=== PATIENT | female | born 1950 | race Caucasian/White ===

== ENCOUNTER 2020-11-11 09:00 | Day surgery (SDC) | payer MEDICARE ==
[2020-11-10 13:43] LABS: BASOPHILS # (AUTO) 0.1 X10'3 (0-0.2); EOSINOPHILS # (AUTO) 0.1 X10'3 (0-0.9); EOSINOPHILS % (AUTO) 1.4 % (0-6); HEMOGLOBIN 15.1 g/dl (12.0-16.0); LYMPHOCYTES # (AUTO) 1.8 X10'3 (1.1-4.8); MEAN CORPUSCULAR HEMOGLOBIN 31.8 PG (27.0-31.0); MEAN CORPUSCULAR HGB CONC 33.6 g/dL (33.0-36.5); MEAN CORPUSCULAR VOLUME 94.5 FL (78-98); MEAN PLATELET VOLUME 7.7 FL (7.4-10.4); MONOCYTES # (AUTO) 0.5 X10'3 (0-0.9); MONOCYTES % (AUTO) 8.3 % (2-12); NEUTROPHILS # (AUTO) 3.2 X10'3 (1.8-7.7); NEUTROPHILS % (AUTO) 57.3 % (42-75); PLATELET COUNT 287 X10'3 (140-440); RED BLOOD COUNT 4.76 X10'6 (4.20-5.60); RED CELL DISTRIBUTION WIDTH 12.7 % (11.5-14.5); WHITE BLOOD COUNT 5.6 X10'3 (4.5-11.0)
[2020-11-10 13:52] LABS: PARTIAL THROMBOPLASTIN TIME 25 SECONDS (22-32)
[2020-11-10 13:56] LABS: ALBUMIN 4.2 G/DL (3.4-5.0); ANION GAP 9 (8-16); BLOOD UREA NITROGEN 22 MG/DL (7-18); BUN/CREATININE RATIO 25.3 (6.6-38.0); CHLORIDE 106 MMOL/L (99-107); CREATININE 0.87 MG/DL (0.40-0.90); GLUCOSE 92 MG/DL (70-104); POTASSIUM 4.1 MMOL/L (3.5-5.1); SODIUM 142 MMOL/L (135-145); TOTAL CARBON DIOXIDE 27.1 MMOL/L (24-32); eGFR 64 ML/MIN
[~2020-11-11] VITALS: Ht 167.6 cm; Wt 56.1 kg
[2020-11-11] VITALS (13 sets, daily range): BP systolic 87–137; BP diastolic 57–98
[2020-11-11] MEDS ORDERED: LORazepam 0.5 MG tablet PO PRN (09:25)
[2020-11-11] MEDS ORDERED: diphenhydrAMINE 25mg capsule PO PRN (09:25)
[2020-11-11] MEDS ORDERED: LIDOcaine/PRILOcaine 5gm cream TP ONE (09:25)
[2020-11-11] MEDS ORDERED: normal saline 1,000 ML IV SCH ×2 (09:25→12:35)
[2020-11-11] MEDS ORDERED: IBUP-2697 PO (10:00)
[2020-11-11] MEDS ORDERED: CALC-855 PO (10:00)
[2020-11-11] MEDS ORDERED: ASPI-611 PO (10:00)
[2020-11-11] MEDS ORDERED: GLUC15006 PO (10:00)
[2020-11-11] MEDS ORDERED: MULT-1085 PO (10:00)
[2020-11-11] MEDS ORDERED: IBAN150T21 PO (10:00)
[2020-11-11] MEDS ORDERED: heparin 1,000unit/ml 10ml vial 10 ML ONE (11:18)
[2020-11-11] MEDS ORDERED: midazolam 2 mg/2 ml injection ONE (11:18)
[2020-11-11] MEDS ORDERED: LIDOcaine 1% (10mg/ml)w/preservative injection 20ml MDV ONE (11:18)
[2020-11-11] MEDS ORDERED: verapamil 2.5 mg/ml inj IV ONE (11:18)
[2020-11-11] MEDS ORDERED: iohexol 350 MG/ML 50ML vial IV ONE (11:18)
[2020-11-11] MEDS ORDERED: fentaNYL/PF 50MCG/1 ML 2ML syringe ONE (11:18)
[2020-11-11] MEDS ORDERED: nitroGLYCERIN-Tridil 50MG/D5W 250 ML IV ONE (11:19)
[2020-11-11] MEDS ORDERED: iohexol 350MG/ML 100ml bottle IV ONE (11:19)
== END 2020-11-11 17:00 | disposition home or self-care (01) ==
LOC: SSTAY O 09:00
PROVIDERS: ATTEND Internal Medicine Cardiovascular Disease
DX: R94.39 Abnormal result of other cardiovascular function study (principal); R53.83 Other fatigue; R06.02 Shortness of breath; I25.10 Atherosclerotic heart disease of native coronary artery without angina pectoris; E78.5 Hyperlipidemia, unspecified; I34.0 Nonrheumatic mitral (valve) insufficiency; G43.909 Migraine, unspecified, not intractable, without status migrainosus; Z72.89 Other problems related to lifestyle; Z79.899 Other long term (current) drug therapy; Z82.49 Family history of ischemic heart disease and other diseases of the circulatory system
CPT/HCPCS: 36415; 76937; 80048; 85025; 85610; 85730; 93005; 93458; 99152; C1769; C1894; J1644; J2001; J2250; J3010; J7030; Q0163; Q9967; 99153; A4620; A5120; A6258; J3490